=== PATIENT | female | born 1960 | race Caucasian/White ===

== ENCOUNTER 2017-03-11 13:17 | Day surgery (SDC) | payer OTHER ==
[2017-03-08 18:32] LABS: HEMATOCRIT 42.4 % (36.0-48.0); HEMOGLOBIN 13.7 g/dL (12.0-16.0)
[2017-03-08 18:39] LABS: CALCIUM, SERUM 9.2 MG/DL (8.5-10.4); CHLORIDE, SERUM 101 MMOL/L (96-112); CREATININE 0.99 MG/DL (0.55-1.02); GFR AFRICAN AMERICAN 73 ML/MIN (>=60); GFR NON AFRICAN AMERICAN 63 ML/MIN (>=60); POTASSIUM, SERUM 3.9 MMOL/L (3.5-5.3); SODIUM, SERUM 137 MMOL/L (135-148)
[2017-03-08 18:41] LABS: BUN (BLOOD UREA NITROGEN) 12 MG/DL (6-23); CO2 (CARBON DIOXIDE) 32 MMOL/L (24-34); GLUCOSE, SERUM 91 MG/DL (60-99)
[2017-03-08 18:48] LABS: ASCORBIC ACID (UR NOT ORDER) NEG (NEG); BILIRUBIN, URINE NEGATIVE (NEG); KETONE, URINE NEGATIVE (NEG); LEUKOCYTE ESTERASE(NOT OR MOD (NEG); WBC (NOT ORDERED) (RFLEX) 9 (0-5)
--- NOTE | ~2017-03-11 | OP ---
Record Of [facility] [address] [place]. [address] NAME: SANDRA JAIN : 56 STATUS : [facility]#: [id number] AGE: 56 ADM/REG DATE : 03/11/17 MR#: [id number] REPORT SERV DATE: 03/12/17 DICTATED BY: RODRICK CUBA JR. DATE: 03/11/17 REPORT STATUS : Draft TRANSCRIBED BY: MODL DATE: 03/11/17 DATE OF PROCEDURE: 03/11/2017 SURGEON: Rodrick Cuba M.D. PREOPERATIVE DIAGNOSIS: Urethral stenosis. 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 PROCEDURE PERFORMED: Cystoscopy and urethral dilation. COMPLICATIONS: None. CONSULTATIONS: None. ANESTHESIA: General with laryngeal mask airway. SPECIMENS: None. DRAINS: 18-Vincentian Vargas catheter. ESTIMATED BLOOD LOSS: None. INDICATION: Mrs. Jain is a 56-year-old female who I have been treating with overactive bladder and urinary urgency with urge incontinence. 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 She comes today for urethral dilation. PROCEDURE IN DETAIL: After the patient was identified and proper informed consent was obtained, she was taken to the operating room. General anesthesia was performed without complication using a laryngeal mask airway. She was then prepped and draped in normal sterile fashion in the lithotomy position. Urethral dilation with a 22-Vincentian was then performed. She had some urethral bleeding due to the radiation changes in her urethral and vaginal mucosa. I did not feel comfortable dilating larger than 22-Vincentian. I then placed a 19-Vincentian cystoscope within the bladder and identified some telangiectasias typical of radiation cystitis, but overall her bladder mucosa was without tumor, diverticula, or stone and had a fairly normal volume I removed the cystoscope, placed an 18-Vincentian Vargas, catheter placed 7 mL of sterile water in the balloon. The bladder was drained. The patient was awakened in the operating room, transferred to the postanesthesia care in stable condition. I will see her back in approximately six weeks in the office and will remove her Vargas on . [place]/MOD[place] Record Of [facility] [address] [place]. [address] NAME: SANDRA JAIN : 56 STATUS : [facility] PAT#: [id number] AGE: 56 ADM/REG DATE : 03/11/17 MR#: [id number] REPORT SERV DATE: 03/12/17 DICTATED BY: RODRICK CUBA JR. DATE: 03/11/17 REPORT STATUS : Draft TRANSCRIBED BY: MODL DATE: 03/11/17 Rodrick Cuba Jr., M.D. / [id number] CC: Rodrick Cuba Jr., M.D. anusha Nahun
[~2017-03-11 13:17] MED LIST: ASAB PO; B COMPLETE PO; BIAXIN5 PO; BL FLAX SEED1000 MG OR; C1 PO; CALCIUM PO; CITRACAL PO; COUMADIN3 MG PO; COUMADIN4 MG PO; DITRO5 PO; DITROPAN XL15 MG PO; ESTER-C500 MG PO; FIBERCON PO; FISH-EPA1000 MG PO; GLUCCHONDR PO; IMOD PO; K-99 PO; LORT7 PO; MAG PO; METHOC500B PO; MULTIPLE VIT PO; NIACIN 500 PO; OXYCOD PO; OXYIR5 MG PO; POT GLUCONAT550 M1 OR; POT GLUCONAT550 M1 PO; PRILOSEC40 MG PO; SANCTURA XR60 MG PO; VESICARE10 MG PO; VITAMIN A8000 UNIT PO; VITAMIN D31000 UNIT PO; VITAMIN D400 UNI1 PO; VITC500 PO; VITE1000 PO; ZESTRIL10 MG PO; ZINC PO; [UNRECOGNIZED DRUG - OTHER] PO
[2017-03-11 13:41] LABS: INTERNATIONAL NORMAL RATI 1.1 UNITS (-)
[2017-03-11 13:42] LABS: PROTIME (NOT ORD) 14.4 SEC (12.0-14.5)
== END 2017-03-11 19:59 | disposition home or self-care (01) ==
LOC: SDC 13:17
PROVIDERS: Urology
PROC: 0T7D8ZZ Dilation of Urethra, Via Natural or Artificial Opening Endoscopic (ICD-10-PCS; principal; 2017-03-11 16:15)
DX: N35.9 Urethral stricture, unspecified (principal); N34.2 Other urethritis; N30.40 Irradiation cystitis without hematuria; I10 Essential (primary) hypertension; K21.9 Gastro-esophageal reflux disease without esophagitis; K62.7 Radiation proctitis; M19.90 Unspecified osteoarthritis, unspecified site; D64.9 Anemia, unspecified; Z92.3 Personal history of irradiation; Z87.19 Personal history of other diseases of the digestive system; Z86.711 Personal history of pulmonary embolism; Z98.890 Other specified postprocedural states; Z90.49 Acquired absence of other specified parts of digestive tract; Z90.5 Acquired absence of kidney; Z88.2 Allergy status to sulfonamides; Z88.6 Allergy status to analgesic agent; Z79.891 Long term (current) use of opiate analgesic; Z79.01 Long term (current) use of anticoagulants; Z79.899 Other long term (current) drug therapy; Z90.710 Acquired absence of both cervix and uterus; Z85.41 Personal history of malignant neoplasm of cervix uteri; Z92.21 Personal history of antineoplastic chemotherapy; Y84.2 Radiological procedure and radiotherapy as the cause of abnormal reaction of the patient, or of later complication, without mention of misadventure at the time of the procedure
CPT/HCPCS: 80048; 81001; 85014; 85018; 85610; 87086; 93005; A9270-GY; J0330; J2250; J3010